=== PATIENT | female | born 1955 | race Caucasian/White ===

== ENCOUNTER 2020-08-19 09:13 | Emergency (ER) | payer MEDICARE, SELFPAY ==
[2020-08-19 09:20] VITALS: BP 176/88; PULSE 76; RESP 20; TEMP 36.7; O2SAT 93; BMI 32.0
--- NOTE | 2020-08-19 10:17 | W.ED.FEMALGU ---
HPI - Female Genitourinary General: Chief complaint: Urogenital-Female Stated complaint: lower back pain Time Seen by Provider: 08/19/20 09:23 History of Present Illness: HPI Narrative: Otherwise she said she is felt fine no fever chills. No frequency of urination no bladder problems are bowel problems that she is aware of. No history of kidney stone. Denies any history of back pain MD elicited complaint: flank pain Onset (ago): day(s) Severity: moderate Female Urogenital Radiation: Non-Radiating and L Flank Quality of pain: stabbing Consistency: intermittent Vaginal discharge: none Vaginal bleeding: none Exacerbating factors: none Relieving factors: none Associated symptoms: Deny abdominal pain, headache(s) or nausea Patient : No Review of Systems Const: Denies: fever(s), chills or body aches Eyes: Denies: change in vision or blurry vision ENMT: Denies: throat pain or nasal congestion Card: Denies: chest pain or dyspnea on exertion Resp: Denies: dyspnea, productive cough or non-productive cough GI: Reports: vomiting; Denies: abdominal pain or nausea : Reports: flank pain Musc: Denies: extremity pain Skin/Breast: Denies: rash Neuro: Denies: headache(s) Psych: Denies: anxiety or depression Shine/Lymph: Denies: easy bruising Physical Exam Const: COMMON NORMALS: no acute distress, average body habitus and patient oriented x3 HENMT: COMMON NORMALS: normocephalic HEAD & SCALP: normal to inspection and normocephalic FACE & SINUS: normal facial exam Eye: COMMON NORMALS: conjunctivae normal GENERAL EYE: appearance normal, both eyes and all related structures CONJUNCTIVA: Yes conjunctivae normal Neck/C-Spine: COMMON NORMALS: no JVD Chest: COMMONS NORMALS: normal inspection of the chest Resp: COMMON NORMALS: normal respiratory effort and clear to auscultation bilaterally AUSCULTATION: clear to auscultation bilaterally Cardio: COMMON NORMALS: no JVD, regular rate and regular rhythm RATE: regular rate RHYTHM: regular rhythm GI: COMMON NORMALS: Normal to inspection, nondistended, normoactive bowel sounds present : BLADDER/KIDNEY EXAM: Yes CVA tenderness on the left Back/Pelvis: GENERAL BACK: Yes CVA tenderness Extremity: COMMON NORMALS: normal to inspection and full ROM Neuro: COMMON NORMALS: patient oriented x3 Course Vital Signs: Vital signs: Vital Signs Temperature 98.1 F 08/19/20 09:20 Pulse Rate 60 08/19/20 12:04 Respiratory Rate 18 08/19/20 12:04 Blood Pressure 132/73 08/19/20 12:04 Pulse Oximetry 97 08/19/20 12:04 MDM - Female MDM Narrative: Medical decision making narrative: Thorough work-up labs look normal CT of the kidneys was normal chest x-ray was normal. Patient continues to have left flank pain after further interview with the patient and going over symptoms of feel that more likely might be radiating from her lumbar spine. Asked her to try medication regimen that I prescribed and to follow-up here and established out that they are clear [facility]. Patient agreeable plan will follow up here if worsening symptoms. Lab Data: Labs: Lab Results 08/19/20 08/19/20 08/19/20 Range/Units 10:12 10:50 10:50 WBC 7.7 (4.0-10.0) 10^3/ uL RBC 3.93 L (4.1-5.3) 10^6/u L Hgb 11.7 (11.5-15.3) g/dL Hct 37.5 (37.0-47.0) % MCV 95.4 (81-99) fL MCH 29.8 (28.0-34.0) pg MCHC 31.2 (30.0-36.0) g/dL RDW 12.7 (12.1-15.1) % Plt Count 233 (130-400) 10^3/c mm MPV 10.8 H (7.4-10.4) fL Neut % (Auto) 66.1 % Lymph % (Auto) 24.4 % [place] % (Auto) 5.3 % Eos % (Auto) 3.4 % Baso % (Auto) 0.5 % Neut # (Auto) 5.07 (1.8-7.7) 10^3/u L Lymph # (Auto) 1.9 (0.8-4.8) 10^3/u L [place] # (Auto) 0.4 (0.2-0.9) 10^3/u L Eos # (Auto) 0.3 (0.0-0.8) 10^3/u L Baso # (Auto) 0.0 (0.0-0.1) 10^3/u L Nucleated RBC % (a uto) 0 % Nucleated RBCs # 0.0 /100WBC Sodium 142 (136-145) mmol/L Potassium 4.5 (3.5-5.1) mmol/L Chloride 106 (98-107) mmol/L Carbon Dioxide 25 (22-29) mmol/L Anion Gap 15.5 (5-19) BUN 18 (8-23) mg/dL Creatinine 0.8 (0.5-0.9) mg/dL GFR Calculation 71.8 L (90-130) mL/min Glucose 91 (65-115) mg/dL Calculated Osmolal ity 295 (285-295) mOsm/k g Calcium 9.3 (8.5-10.5) mg/dL Urine Color Straw (Yellow) Urine Appearance Clear (CLEAR) Urine pH 5 (5-7) Ur Specific Gravit y 1.010 (1.005-1.030) Urine Protein Neg (Negative) Urine Glucose (UA) Norm (Normal) Urine Ketones Negative (Negative) Urine Blood Neg (Negative) Urine Nitrate Negative (Negative) Urine Bilirubin Neg (Negative) Urine Urobilinogen Norm (Negative) mg/dL Ur Leukocyte Lucina ase Negative (Negative) Discharge Plan Discharge Patient Disposition: Home Clinical Impression: Acute left flank pain Condition: Stable Prescriptions: New Zofran 4 mg tablet 4 mg PO Q8H 3 Days Qty: 9 RF: 0 prednisone 20 mg tablet 20 mg PO DAILY Qty: 7 RF: 0 tramadol 50 mg tablet 50 mg PO TID PRN (Reason: pain) Qty: 7 RF: 0 No Action ibuprofen 200 mg Tablet 200 - 400 mg PO Q6H PRN (Reason: Pain) RF: 0 Discharge Orders: Discharge ED (Routine); Ordered 08/19/20 Ordered By: Navid Kellogg Discharge Diet: Usual diet Discharge Activity: Increase activity as tolerated Patient Instructions: Flank Pain (ED), Opioid Safety Activity Restrictions/Additional Instructions: Follow-up with medical provider as directed. Take medications as prescribed. Return to the ER or your medical provider if condition worsens. Please read and understand discharge instructions. If any questions ask please. If no improvement next few days follow-up your primary care provider or return here. Coding Level of Care Code ED Cutter Banana Room for Chg Fwd Exam Comprehensive
[2020-08-19 10:22] LABS: Add Urine Microscopic? NO; Charge for UA Resulting for Rev
[2020-08-19 10:30] LABS: Bilirubin Urine Neg (Negative); Blood Urine Neg (Negative); Glucose Urine UA Norm (Normal); Ketones Urine Negative (Negative); Leukocyte Esterase Urine Negative (Negative); Nitrate Urine Negative (Negative); Protein Urine Neg (Negative); Urine Appearance Clear (CLEAR); Urine Color Straw (Yellow); Urobilinogen Urine Norm (Negative); pH Urine 5 (5-7)
[2020-08-19 11:02] LABS: Basophils % 0.5 %; Eosinophils # 0.3 10^3/uL (0.0-0.8); Eosinophils % 3.4 %; Hematocrit 37.5 % (37.0-47.0); Hemoglobin 11.7 g/dL (11.5-15.3); Lymphocytes # 1.9 10^3/uL (0.8-4.8); Lymphocytes % 24.4 %; Mean Corpuscular HGB Conc 31.2 g/dL (30.0-36.0); Mean Corpuscular Hemoglobin 29.8 pg (28.0-34.0); Mean Corpuscular Volume 95.4 fL (81-99); Mean Platelet Volume 10.8 fL (7.4-10.4); Monocytes # 0.4 10^3/uL (0.2-0.9); Monocytes % 5.3 %; Neutrophils # 5.07 10^3/uL (1.8-7.7); Neutrophils % 66.1 %; Nucleated Red Blood Cells % 0 %; Platelet Count 233 10^3/cmm (130-400); Red Blood Count 3.93 10^6/uL (4.1-5.3); Red Cell Distribution Width 12.7 % (12.1-15.1); White Blood Count 7.7 10^3/uL (4.0-10.0)
--- NOTE | 2020-08-19 11:02 | CT_ITS ---
WS: [id number] CT scan of the abdomen and pelvis without Oral and IV contrast. Additional two-dimensional coronal an d sagittal reconstruction was performed. 08/19/2020 Clinical Data: left flank pain Comparison: None. DLP: 1277.[address] scans at [facility] use at least one of these dose optimization techniques: automat ed exposure control; mA and/or kV adjustment per patient size (includes targeted exams where dose is matched to clinical indication); or iterative reconstruction. Findings: The lower lungs show no nodules, masses or effusions. The liver, spleen, adrenal glands and pancreas are normal. There are numerous gallstones in the gallb ladder. The kidneys show small bilateral nonobstructing calculi. No hydronephrosis, hydroureter, mass or cyst is seen. No bladder calculi are noted. The abdominal aorta is normal in size. No appendicitis or diverticulitis is seen. The stomach, small bowel and colon are not remarkable. No abscess, adenopathy, ascites, obstruction or free air is seen. There is a 2.2 cm round nodule of mixe d density in the superior left pelvis which may represent a lipoma or adenoma. The bladder is unremarkable. No inguinal hernia is seen. The bones of the lower thorax, lumbar spine, pelvis, and hips are normal. CT/CT kidney stone [id number] Impression: 1. Small nonobstructive renal calculi. 2. Negative for ureteral or bladder calculi. 3. Cholelithiasis.
[2020-08-19 11:17] VITALS: BP 165/83; PULSE 59; RESP 18; O2SAT 97
[2020-08-19 11:25] LABS: Anion Gap 15.5 (5-19); Blood Urea Nitrogen 18 mg/dL (8-23); Calcium 9.3 mg/dL (8.5-10.5); Carbon Dioxide 25 mmol/L (22-29); Chloride 106 mmol/L (98-107); Creatinine Clr Calc Pharmacy 67.4991; Glomerular Filtration Rate 71.8 mL/min (90-130); Glucose 91 mg/dL (65-115); Osmolality Calculated 295 mOsm/kg (285-295); Potassium 4.5 mmol/L (3.5-5.1); Sodium 142 mmol/L (136-145)
--- NOTE | 2020-08-19 11:37 | XR_ITS ---
WS: [id number] PORTABLE CHEST HISTORY: left posterior pain COMPARISON: None available. Mild pulmonary hyperexpansion. Biapical pleural thickening greater on the RIGHT. Pleural thickening i s smooth. No pneumonia. No pleural effusion or pneumothorax. Cardiac size: Normal. Mediastinum/Aorta: Mild atherosclerosis aorta. No osseous abnormality seen. XR/XR chest 1V portable [id number] IMPRESSION: 1. Mild chronic emphysema with biapical pleural thickening. 2. No pneumonia.
[2020-08-19 12:04] VITALS: BP 132/73; PULSE 60; RESP 18; O2SAT 97
== END 2020-08-19 12:05 | disposition home or self-care (01) ==
PROVIDERS: Emergency Provider Nurse Practitioner Family
DX: R10.9 Unspecified abdominal pain (principal)
CPT/HCPCS: 71045; 74176; 80048; 81003; 85025; 99283